=== PATIENT | male | born 2000 | race Caucasian/White ===

== ENCOUNTER 2020-09-17 18:35 | Emergency (ER) | payer OTHER ==
[~2020-09-17] VITALS: Ht 170.2 cm; Wt 117.9 kg
[2020-09-17 18:40] VITALS: BP 153/90
--- NOTE | 2020-09-17 18:43 | NUR ---
to lobby a/w bed ambulatory
[2020-09-17 19:21] LABS: BASOPHILS % (AUTO) 0.3 % (0.0-2.0); EOSINOPHILS # (AUTO) 0.1 K/uL (0-0.4); EOSINOPHILS % (AUTO) 0.9 % (0.0-4.0); HEMOGLOBIN 16.5 g/dL (12.0-18.0); LYMPHOCYTES # (AUTO) 1.5 K/uL (2.0-11.5); LYMPHOCYTES % (AUTO) 14.2 % (20.5-51.1); MEAN CORPUSCULAR HEMOGLOBIN 31 pg (27-31); MEAN CORPUSCULAR HGB CONC 34 g/dL (33-37); MEAN CORPUSCULAR VOLUME 91.6 fL (80-94); MONOCYTES # (AUTO) 0.9 K/uL (0.8-1.0); MONOCYTES % (AUTO) 8.5 % (1.7-9.3); NEUTROPHILS # (AUTO) 7.8 K/uL (1.8-7.7); NEUTROPHILS % (AUTO) 76.1 % (42.2-75.2); PLATELET COUNT (AUTO) 330 K/uL (140-450); RED BLOOD CELL COUNT(AUTO) 5.35 MIL/uL (4.20-6.10); RED CELL DISTRIBUTION WIDTH 13.3 % (11.6-13.7); WHITE BLOOD COUNT (AUTO) 10.3 K/uL (4.5-11.0)
[2020-09-17 19:44] LABS: ALBUMIN 4.5 g/dL (3.4-5.0); ANION GAP 15.6 (8-16); CARBON DIOXIDE 27.1 mmol/L (21-32); POTASSIUM 3.7 mmol/L (3.5-5.1); TOTAL BILIRUBIN 0.4 mg/dL (0.0-1.0)
--- NOTE | 2020-09-17 20:51 | NUR ---
PT TAKEN TO CT FROM [facility]
--- NOTE | 2020-09-17 21:03 | NUR ---
PT RETURN FROM CT TO ER LOBBY
--- NOTE | 2020-09-17 23:00 | NUR ---
PT TAKEN TO CHAIR
[2020-09-17] MEDS ORDERED: ONDA-24 SL (23:20)
[2020-09-17] MEDS ORDERED: NAPR-54 PO (23:20)
--- NOTE | 2020-09-17 23:27 | NUR ---
Patient evaluated by Dr. Hernandez, no nursing care provided. Patient discharged in stable condition. Discharge instructions provided. Rx of naprosyn and zofran given. Medication administration and possible side effects explained. All questions asked and answered prior to departure.
== END 2020-09-17 23:27 | disposition home or self-care (01) ==
LOC: MED 18:35
DX: R10.32 Left lower quadrant pain (principal); Z79.899 Other long term (current) drug therapy
CPT/HCPCS: 36415; 80053; 81002; 83690; 85025; 99284

== ENCOUNTER 2021-08-27 04:51 | Emergency (ER) | payer OTHER ==
[~2021-08-27] VITALS: Ht 170.2 cm; Wt 117.9 kg
[~2021-08-27 04:51] MED LIST: NAPR-54 PO; ONDA-188 SL
[2021-08-27 04:57] VITALS: BP 147/79
--- NOTE | 2021-08-27 05:09 | NUR ---
Dr. Madden examining patient.
[2021-08-27] MEDS ORDERED: KETOROLAC 60 MG/2 ML VIAL IM ONE (05:10)
[2021-08-27] MEDS ORDERED: DICYCLOMINE HCL LIQUID 20 MG, ALUMINUM HYD/MAG/SIMETHICONE 30 ML, LIDOCAINE VISCOUS 2% ... PO ONE ×3 (05:10)
--- NOTE | 2021-08-27 05:14 | NUR ---
20 Y/O MALE BIBS FROM HOME, C/O Epigastric pain x 1 day. Patient reported, had epigastric pain since yesterday afternoon. + VOMIT X2, NO BLOOD. DENIES DIARRHEA. A/OX4, UNLABORED BREATHING, AMBULATORY. PT STATES HX OF SAME AND WAS DX WITH GALLSTONES. PT TOOK IBUPROFEN 0200 WITH NO RELIEF. PMHx: Gall stone (2 months ago). Asthma
[2021-08-27] MEDS ORDERED: ALUMINUM HYD/MAG/SIMETHICONE 30 ML UDC ONE (05:20)
[2021-08-27] MEDS ORDERED: DICYCLOMINE HCL LIQUID 10 MG/5 ML UDC ONE (05:21)
[2021-08-27] MEDS ORDERED: MORPHINE SULFATE 4 MG/ML SYR IVP ONE (06:00)
[2021-08-27] MEDS ORDERED: NACL 0.9% 1,000 ML IV ONE (06:00)
[2021-08-27] MEDS ORDERED: ONDANSETRON 4 MG/2 ML VIAL IVP ONE (06:00)
--- NOTE | 2021-08-27 06:02 | NUR ---
[facility] AT BEDSIDE
[2021-08-27 06:12] LABS: BASOPHILS % (AUTO) 0.4 % (0.0-2.0); EOSINOPHILS % (AUTO) 0.3 % (0.0-4.0); HEMATOCRIT 44.9 % (36-52); LYMPHOCYTES # (AUTO) 1.2 K/uL (2.0-11.5); LYMPHOCYTES % (AUTO) 9.9 % (20.5-51.1); MEAN CORPUSCULAR HEMOGLOBIN 30 pg (27-31); MEAN CORPUSCULAR HGB CONC 33 g/dL (33-37); MEAN CORPUSCULAR VOLUME 88.9 fL (80-94); MONOCYTES # (AUTO) 0.5 K/uL (0.8-1.0); MONOCYTES % (AUTO) 4.4 % (1.7-9.3); NEUTROPHILS # (AUTO) 10.1 K/uL (1.8-7.7); PLATELET COUNT (AUTO) 302 K/uL (140-450); RED BLOOD CELL COUNT(AUTO) 5.05 MIL/uL (4.20-6.10); RED CELL DISTRIBUTION WIDTH 13.6 % (11.6-13.7); WHITE BLOOD COUNT (AUTO) 11.9 K/uL (4.5-11.0)
--- NOTE | 2021-08-27 06:14 | NUR ---
ULTRASOUND AT BEDSIDE
[2021-08-27 06:31] LABS: ALBUMIN 3.8 g/dL (3.4-5.0); CARBON DIOXIDE 27.1 mmol/L (21-32); CREATININE 0.9 mg/dL (0.6-1.3); POTASSIUM 3.1 mmol/L (3.5-5.1); TOTAL BILIRUBIN 0.3 mg/dL (0.0-1.0)
[2021-08-27] MEDS ORDERED: PANTOPRAZOLE 40 MG INJ VIAL IVP ONE (06:45)
[2021-08-27 07:18] VITALS: BP 143/66
--- NOTE | 2021-08-27 07:19 | NUR ---
RECEIVED REPORT FROM RADHA UGALDE. PT CALM AND RESTING. STATES PAIN DECREASED TO 4/10. AAOX4, AMBULATORY. FLUID RUNNING. IV PATENT.
[2021-08-27] MEDS ORDERED: ONDA-188 SL (08:01)
[2021-08-27] MEDS ORDERED: FAMO-92 PO (08:01)
[2021-08-27] MEDS ORDERED: IBUP-2213 PO (08:01)
--- NOTE | 2021-08-27 08:01 | NUR ---
Patient discharged with v/s stable. Written and verbal after care instructions given and explained. Patient alert, oriented and verbalized understanding of instructions. Ambulatory with steady gait. All questions addressed prior to discharge. ID band removed. Patient advised to follow up with PMD. Rx of famotidine, ibuprofen, and zofran given. Patient educated on indication of medication including possible reaction and side effects. Opportunity to ask questions provided and answered.
== END 2021-08-27 08:01 | disposition home or self-care (01) ==
LOC: MED 04:51
DX: K80.20 Calculus of gallbladder without cholecystitis without obstruction (principal); R10.13 Epigastric pain
CPT/HCPCS: 36415; 76705; 80053; 83690; 85025; 96361; 96372; 96374; 96375; 99285; C9113; J1885; J2405; J7030; Q0092; J2270

== ENCOUNTER 2023-11-30 09:19 | Emergency (ER) | payer OTHER ==
[~2023-11-30] VITALS: Ht 170.2 cm; Wt 132.2 kg
[~2023-11-30 09:19] MED LIST changes: +FAMO-92 PO; +IBUP-2213 PO; +NAPR-337 PO; -NAPR-54 PO
[2023-11-30 09:27] VITALS: BP 144/92; PULSE 88; RESP 19; TEMP 97.7; O2SAT 98
[2023-11-30] MEDS: KETOROLAC 60 MG/2 ML VIAL IM ONE (10:00)
[2023-11-30] MEDS: ONDANSETRON 4 MG ODT PO ONE (10:00)
[2023-11-30] MEDS: ALBUTEROL 0.083% 2.5 MG/3 ML NEBU INH ONE (10:16)
[2023-11-30 10:17] VITALS: PULSE 80; RESP 15; O2SAT 94; O2SAT 95
[2023-11-30] MEDS: ALBUTEROL SULFATE/IPRATROPIU 3 ML SOL IH ONE (10:17)
[2023-11-30] MEDS ORDERED: PSEU120T22 PO (10:37)
[2023-11-30] MEDS ORDERED: ONDA8TAB87 PO (10:37)
[2023-11-30] MEDS ORDERED: PRED20TA5 PO (10:37)
[2023-11-30] MEDS ORDERED: IBUP-2213 PO (10:37)
== END 2023-11-30 10:51 | disposition home or self-care (01) ==
LOC: MED 09:19
DX: R11.2 Nausea with vomiting, unspecified (principal); M79.18 Myalgia, other site; J06.9 Acute upper respiratory infection, unspecified; J45.909 Unspecified asthma, uncomplicated; Z79.899 Other long term (current) drug therapy
CPT/HCPCS: 94640; 96372; 99283; J1885; J7613; Q0162

== ENCOUNTER 2023-12-10 23:12 | Emergency (ER) | payer OTHER ==
[~2023-12-10] VITALS: Ht 170.2 cm; Wt 122.5 kg
[~2023-12-10 23:12] MED LIST changes: +ONDA8TAB87 PO; +PRED20TA5 PO; +PSEU120T22 PO
[2023-12-10 23:26] VITALS: BP 144/84; PULSE 84; RESP 20; TEMP 97.2; O2SAT 100
[2023-12-11] MEDS: KETOROLAC 60 MG/2 ML VIAL IM ONE (01:41)
[2023-12-11] MEDS ORDERED: ACET-8905 PO (03:19)
== END 2023-12-11 03:55 | disposition home or self-care (01) ==
LOC: MED 23:12
DX: K08.89 Other specified disorders of teeth and supporting structures (principal); R03.0 Elevated blood-pressure reading, without diagnosis of hypertension; J45.909 Unspecified asthma, uncomplicated; Z79.899 Other long term (current) drug therapy
CPT/HCPCS: 96372; 99283; J1885